=== PATIENT | female | born 1995 | race Caucasian/White ===

== ENCOUNTER 2024-02-26 16:07 | Day surgery (SDC) | payer BC ==
[2024-02-26 16:33] VITALS: BMI 33.4
[2024-02-26 17:32] LABS: Bilirubin Neg (Negative); Blood, Urine Negative (Negative); Clarity Clear (Clear); Glucose, Urine (Dipstick) Normal (Negative); Ketone, Urine Negative (Negative); Leukocyte 25 (Negative); Nitrite Negative (Negative); Protein, Urine (Dipstick) Negative (Neg-Trace); Urobilinogen Normal mg/dL (Less than 2)
[2024-02-26 17:39] LABS: Bacteria/HPF Rare-Few HPF (None Seen); CAUTI Indications for Culture Dysuria,urgency,freq; RBC/HPF 0-3 HPF (0-3); Squamous Epithelial 0-3 HPF (0-3); WBC/HPF 0-3 HPF (0-3)
[2024-02-26 17:41] LABS: Urine Culture Reflex No No
== END 2024-02-26 17:50 | disposition home or self-care (01) ==
LOC: CSHLD/OP 16:07
PROVIDERS: ATTEND Obstetrics & Gynecology
DX: O99.891 Other specified diseases and conditions complicating pregnancy (principal); M54.9 Dorsalgia, unspecified; R10.2 Pelvic and perineal pain; Z79.899 Other long term (current) drug therapy; Z3A.21 21 weeks gestation of pregnancy
CPT/HCPCS: 81001; 99282

== ENCOUNTER 2024-04-05 15:06 | Day surgery (SDC) | payer BC ==
[2024-04-05 15:40] VITALS: BMI 34.2
[2024-04-05] MEDS ORDERED: hydrALAZINE 20 MG/ML VIAL SLOW IVP PRN (15:59)
[2024-04-05 16:31] LABS: #Basophils 0.03 10x3/uL (0.0-0.2); #Eosinophils 0.17 10x3/uL (0.0-0.5); #Monocytes 1.04 10x3/uL (0.0-1.1); #Neutrophils 9.09 10x3/uL (1.5-8.4); %Basophils 0.2 % (0.0-2.0); %Eosinophils 1.4 % (0.0-6.0); %Lymphocytes 13.4 % (18.0-47.0); %Monocytes 8.6 % (0.0-10.0); %Neutrophils 75.5 % (40.0-75.0); Hematocrit 33.4 % (34.9-44.5); Hemoglobin 11.1 g/dL (12.0-15.5); Mean Corpuscular HGB CONC 33.2 g/dL (32.0-36.0); Mean Corpuscular Hemoglobin 30.3 pg (27.0-33.0); Mean Corpuscular Volume 91.3 fL (81.6-98.3); Mean Platelet Volume 9.4 fL (7.4-10.4); Platelet Count 373 10x3/uL (150-450); RBC Distribution Width 12.8 % (11.5-14.5); Red Blood Cell (RBC) Count 3.66 10x6/uL (3.90-5.03); White Blood Cell (WBC) Count 12.1 10x3/uL (3.5-10.5)
[2024-04-05 16:48] LABS: ALT (SGPT) 16 U/L (8-55); AST (SGOT) 15 U/L (5-34); Albumin 2.6 g/dL (3.5-5.0); Alkaline Phosphatase 61 U/L (40-110); Anion Gap 13 mmol/L (10-20); BUN (Urea Nitrogen) 10 mg/dL (7.0-18.7); Bilirubin, Total 0.2 mg/dL (0.2-1.2); Calc. Creatinine Clearance 158 mL/min (70-130); Carbon Dioxide 22 mmol/L (22-29); Chloride 108 mmol/L (98-107); Estimated GFR 123; Globulin 4.1 g/dL (2.4-3.5); Glucose 91 mg/dL (70-105); Potassium 3.8 mmol/L (3.5-5.1); Protein, Total 6.7 g/dL (6.0-8.3); Sodium 139 mmol/L (136-145)
[2024-04-05 16:51] LABS: Creatinine, Urine 27.99 mg/dL (47-110); Protein, Urine Random Quant Less than 10 mg/dL (1-14)
== END 2024-04-05 17:05 | disposition home or self-care (01) ==
LOC: CSHLD/OP 15:06
PROVIDERS: ATTEND Obstetrics & Gynecology
DX: O99.891 Other specified diseases and conditions complicating pregnancy (principal); R42 Dizziness and giddiness; R03.0 Elevated blood-pressure reading, without diagnosis of hypertension; Z79.899 Other long term (current) drug therapy; Z90.89 Acquired absence of other organs; Z3A.26 26 weeks gestation of pregnancy
CPT/HCPCS: 36415; 80053; 82570; 84156; 85025; 99284

== ENCOUNTER 2024-05-13 19:59 | Day surgery (SDC) | payer BC ==
[2024-05-13 20:22] VITALS: BMI 37.5
== END 2024-05-13 22:00 | disposition home or self-care (01) ==
LOC: CSHLD/OP 19:59
PROVIDERS: ATTEND Obstetrics & Gynecology
DX: O36.8130 Decreased fetal movements, third trimester, not applicable or unspecified (principal); Z79.899 Other long term (current) drug therapy; Z3A.32 32 weeks gestation of pregnancy

== ENCOUNTER 2024-06-07 13:19 | Day surgery (SDC) | payer BC ==
[2024-06-07 13:37] VITALS: BMI 38.7
[2024-06-07] MEDS ORDERED: hydrALAZINE 20 MG/ML VIAL SLOW IVP PRN (14:02)
[2024-06-07 14:35] LABS: #Basophils 0.03 10x3/uL (0.0-0.2); #Eosinophils 0.17 10x3/uL (0.0-0.5); #Monocytes 1.09 10x3/uL (0.0-1.1); #Neutrophils 7.67 10x3/uL (1.5-8.4); %Basophils 0.3 % (0.0-2.0); %Eosinophils 1.6 % (0.0-6.0); %Lymphocytes 13.4 % (18.0-47.0); %Monocytes 10.5 % (0.0-10.0); %Neutrophils 73.8 % (40.0-75.0); Hemoglobin 10.9 g/dL (12.0-15.5); Mean Corpuscular HGB CONC 32.1 g/dL (32.0-36.0); Mean Corpuscular Volume 84.4 fL (81.6-98.3); Mean Platelet Volume 10.3 fL (7.4-10.4); Platelet Count 331 10x3/uL (150-450); RBC Distribution Width 13.7 % (11.5-14.5); Red Blood Cell (RBC) Count 4.03 10x6/uL (3.90-5.03); White Blood Cell (WBC) Count 10.39 10x3/uL (3.5-10.5)
[2024-06-07 14:37] LABS: Bilirubin Neg (Negative); Blood, Urine Negative (Negative); Clarity Clear (Clear); Glucose, Urine (Dipstick) Normal (Negative); Ketone, Urine Negative (Negative); Leukocyte 100 (Negative); Nitrite Negative (Negative); Protein, Urine (Dipstick) Negative (Neg-Trace); Urobilinogen Normal mg/dL (Less than 2); pH, Urine 6.5 (5.0-9.0)
[2024-06-07 14:54] LABS: ALT (SGPT) 18 U/L (Less than 34); AST (SGOT) 27 U/L (11-34); Albumin 2.5 g/dL (3.1-4.5); Alkaline Phosphatase 105 U/L (40-110); Anion Gap 12 mmol/L (10-20); BUN (Urea Nitrogen) 10 mg/dL (7.0-18.7); Bilirubin, Total 0.3 mg/dL (0.3-1.2); Calc. Creatinine Clearance 207 mL/min (70-130); Calcium 9.4 mg/dL (7.8-10.44); Carbon Dioxide 19 mmol/L (22-29); Chloride 110 mmol/L (98-107); Estimated GFR 127; Glucose 66 mg/dL (70-105); Potassium 4.1 mmol/L (3.5-5.1); Protein, Total 6.5 g/dL (6.0-8.3); Sodium 137 mmol/L (136-145)
[2024-06-07 15:04] LABS: Creatinine, Urine 11.53 mg/dL (16.00-327.00); Protein, Urine Random Quant Less than 10 mg/dL (1-14)
[2024-06-07 15:51] LABS: RBC/HPF None Seen HPF (0-3)
[2024-06-07 15:52] LABS: Bacteria/HPF 1+ HPF (None Seen); CAUTI Indications for Culture Pregnancy; Squamous Epithelial 0-3 HPF (0-3)
[2024-06-07 15:54] LABS: Urine Culture Reflex Yes Yes
[2024-06-09 12:41] LABS: Group B Streptococcus by PCR Not Detected (NotDetected)
== END 2024-06-07 18:15 | disposition home or self-care (01) ==
LOC: CSHLD/OP 13:19
PROVIDERS: ATTEND Obstetrics & Gynecology
DX: O13.3 Gestational [pregnancy-induced] hypertension without significant proteinuria, third trimester (principal); O47.03 False labor before 37 completed weeks of gestation, third trimester; Z3A.35 35 weeks gestation of pregnancy; Z98.890 Other specified postprocedural states; Z79.899 Other long term (current) drug therapy
CPT/HCPCS: 36415; 80053; 81001; 82570; 84156; 85025; 87086; 87653; 99285

== ENCOUNTER 2024-06-22 07:02 | Inpatient (IN) | payer BC ==
[2024-06-22 07:53] VITALS: BMI 40.6
[2024-06-22] MEDS ORDERED: hydrALAZINE 20 MG/ML VIAL SLOW IVP PRN ×2 (08:14→08:45)
[2024-06-22 08:22] LABS: Fetal Membranes Rupture RUPTURE DETECTED (No Rupture)
[2024-06-22] MEDS ORDERED: fentaNYL 50 mcg/mL 1 mL Vial SLOW IVP PRN (08:45)
[2024-06-22] MEDS ORDERED: Misoprostol 100 MCG TAB VAG SCH (08:45)
[2024-06-22] MEDS ORDERED: Acetaminophen 500 MG TAB PO PRN (08:45)
[2024-06-22] MEDS ORDERED: Tranexamic Acid 1,000 MG/10 ML VIAL IVP PRN (08:45)
[2024-06-22] MEDS ORDERED: Misoprostol 200 MCG TAB PR PRN (08:45)
[2024-06-22] MEDS ORDERED: Oxytocin 30 units/NS 500 ML 500 ML IV SCH ×2 (08:45)
[2024-06-22] MEDS ORDERED: Promethazine HCl 25 MG/ML VIAL IM PRN ×2 (08:45→16:34)
[2024-06-22] MEDS ORDERED: Ondansetron PF 4 MG/2 ML Vial IVP PRN (08:45)
[2024-06-22] MEDS ORDERED: Ibuprofen 800 MG TAB PO PRN (08:45)
[2024-06-22] MEDS ORDERED: Carboprost 250 MCG/ML AMP IM PRN (08:45)
[2024-06-22] MEDS ORDERED: Methylergonovine 0.2 MG/ML VIAL IM PRN (08:45)
[2024-06-22] MEDS ORDERED: Diphenoxylate HCl/Atropine Tablet PO PRN ×2 (08:45)
[2024-06-22] MEDS ORDERED: Lidocaine 1% (PF) 30 ML VIAL SC PRN (08:45)
[2024-06-22] MEDS: Oxytocin 30 units/NS 500 ML 500 ML IV SCH (09:22)
[2024-06-22] MEDS: Lactated Ringer's 1,000 ML IV SCH (09:28)
[2024-06-22 10:16] LABS: Hematocrit 35.3 % (34.9-44.5); Hemoglobin 11.4 g/dL (12.0-15.5); Mean Corpuscular HGB CONC 32.3 g/dL (32.0-36.0); Mean Corpuscular Hemoglobin 27.2 pg (27.0-33.0); Mean Corpuscular Volume 84.2 fL (81.6-98.3); Mean Platelet Volume 11.3 fL (7.4-10.4); Platelet Count 310 10x3/uL (150-450); RBC Distribution Width 14.6 % (11.5-14.5); Red Blood Cell (RBC) Count 4.19 10x6/uL (3.90-5.03); White Blood Cell (WBC) Count 9.51 10x3/uL (3.5-10.5)
[2024-06-22 10:49] LABS: Syphilis Antibody Nonreactive (Nonreactive); Syphilis Antibody Index 0.13 S/CO (<1.00 Non-Reactive)
[2024-06-22 10:50] LABS: HBsAg Index 0.21 S/CO (0-0.99); Hep B Surf Ag - L&D Non-Reactive S/CO (NonReactive)
[2024-06-22] MEDS ORDERED: Bupivacaine 0.25% HCL 30 ML VIAL ONE (13:00)
[2024-06-22] MEDS ORDERED: Bupivacaine HCl 0.5%/Epinephrine 1:200,000/PF 30 ml Vial ONE (13:00)
[2024-06-22] MEDS ORDERED: Terbutaline Sulfate 1 MG/ML VIAL ONE (13:00)
[2024-06-22] MEDS: fentaNYL/Ropivacaine Epidural 100 ML ONE (16:15)
[2024-06-22] MEDS ORDERED: Moisturizing Cream (Eucerin) 113 GM JAR TOP PRN (16:34)
[2024-06-22] MEDS ORDERED: diphenhydrAMINE 50 MG/ML VIAL IVP PRN (16:34)
[2024-06-22] MEDS ORDERED: Acetaminophen 325 MG TAB PO PRN (16:34)
[2024-06-22] MEDS ORDERED: ePHEDrine Sulfate 50 MG/10 ML VIAL SLOW IVP PRN (16:34)
[2024-06-22] MEDS ORDERED: Naloxone HCl 0.4 mg/ml Vial IVP PRN ×2 (16:34)
[2024-06-22] MEDS ORDERED: Lactated Ringer's 500 ML IV PRN (16:34)
[2024-06-22] MEDS ORDERED: Communication Order-Pharmacy FS SCH (16:45)
[2024-06-22 18:48] LABS: ALT (SGPT) 16 U/L (Less than 34); AST (SGOT) 23 U/L (11-34); Albumin 2.7 g/dL (3.1-4.5); Alkaline Phosphatase 113 U/L (40-110); Anion Gap 14 mmol/L (10-20); BUN (Urea Nitrogen) 11 mg/dL (7.0-18.7); Bilirubin, Total 0.2 mg/dL (0.3-1.2); Calc. Creatinine Clearance 188 mL/min (70-130); Calcium 8.9 mg/dL (7.8-10.44); Carbon Dioxide 17 mmol/L (22-29); Chloride 110 mmol/L (98-107); Estimated GFR 123; Globulin 3.7 g/dL (2.4-3.5); Glucose 75 mg/dL (70-105); Potassium 4.5 mmol/L (3.5-5.1); Protein, Total 6.4 g/dL (6.0-8.3); Sodium 136 mmol/L (136-145)
[2024-06-22] MEDS: Calcium Carbonate 500 MG ChewTAB PO PRN (19:30)
[2024-06-22 19:53] LABS: Creatinine, Urine 33.51 mg/dL (16.00-327.00); Protein, Urine Random Quant Less than 10 mg/dL (1-14)
[2024-06-23] MEDS: fentaNYL 2 mcg/Ropivacaine 0.2% Epidural 100 ML CADD EPIDURAL SCH (02:03)
[2024-06-23] MEDS: Ondansetron PF 4 MG/2 ML Vial IVP PRN ×2 (04:20→07:37)
[2024-06-23] MEDS ORDERED: Famotidine/PF 20 mg/2ml Vial SLOW IVP PRN (04:54)
[2024-06-23] MEDS ORDERED: Bicitra 30 ML UDCUP PO PRN (04:54)
[2024-06-23] MEDS ORDERED: CEFAZOLIN 2 GM in Sodium Chloride 0.9% 100 ML IVPB SCH (05:00)
[2024-06-23 05:49] LABS: Analyzer IN Cardio CS NICU; RapidComm Collect By RN
[2024-06-23] MEDS ORDERED: Moisturizing Cream (Eucerin) 113 GM JAR TOP PRN (05:50)
[2024-06-23] MEDS ORDERED: diphenhydrAMINE 50 MG/ML VIAL IVP PRN (05:50)
[2024-06-23] MEDS ORDERED: Ketorolac Tromethamine 30 MG (1 mL) VIAL IVP PRN (05:50)
[2024-06-23] MEDS ORDERED: Promethazine HCl 25 MG/ML VIAL IM PRN (05:50)
[2024-06-23] MEDS ORDERED: Meperidine HCl/PF 25 MG (1 mL) VIAL SLOW IVP PRN (05:50)
[2024-06-23] MEDS ORDERED: Naloxone HCl 0.4 mg/ml Vial IVP PRN ×2 (05:50)
[2024-06-23] MEDS ORDERED: Ondansetron PF 4 MG/2 ML Vial IVP PRN ×2 (05:50→06:32)
[2024-06-23] MEDS ORDERED: Naloxone HCl 0.4 mg/ml Vial IV PRN (05:50)
[2024-06-23 05:51] LABS: Analyzer IN Cardio CS NICU; RapidComm Collect By RN; pH (Cord, venous) 7.287 (7.250-7.350)
[2024-06-23] MEDS ORDERED: Communication Order-Pharmacy FS SCH (06:00)
[2024-06-23] MEDS ORDERED: Ketorolac Tromethamine 30 MG (1 mL) VIAL IVP SCH (06:00)
[2024-06-23] MEDS ORDERED: hydrALAZINE 20 MG/ML VIAL SLOW IVP PRN (06:32)
[2024-06-23] MEDS ORDERED: diphenhydrAMINE 25 MG CAP PO PRN (06:32)
[2024-06-23] MEDS ORDERED: Misoprostol 200 MCG TAB PR PRN (06:32)
[2024-06-23] MEDS ORDERED: Oxytocin 30 units/NS 500 ML 500 ML IV SCH (06:45)
[2024-06-23 06:50] LABS: D-Dimer Test 5.04 mcg/mL (0.19-0.50); INR-International Normal Ratio 0.9; PTT 25.5 sec (22.0-33.0); Prothrombin Time 10.2 sec (9.5-12.1)
[2024-06-23] MEDS: fentaNYL 50 mcg/mL 1 mL Vial SLOW IVP PRN (06:56)
[2024-06-23 08:15] LABS: Hematocrit 25.7 % (34.9-44.5); Hemoglobin 8.3 g/dL (12.0-15.5)
[2024-06-23] MEDS ORDERED: Boostrix 0.5 ML (Tdap) VIAL (>/=7 yrs of age) IM ONE (09:00)
[2024-06-23] MEDS: Azithromycin 500 MG VIAL ONE (09:44)
[2024-06-23] MEDS: CEFAZOLIN 2 GM VIAL ONE (09:44)
[2024-06-23] MEDS: Morphine PF 10 MG/10 ML VIAL ONE (09:45)
[2024-06-23] MEDS: Famotidine/PF 20 mg/2ml Vial ONE (09:45)
[2024-06-23] MEDS: Ondansetron PF 4 MG/2 ML Vial ONE (09:45)
[2024-06-23] MEDS: Ketorolac Tromethamine 30 MG (1 mL) VIAL ONE (09:45)
[2024-06-23] MEDS: Dexamethasone 10 MG/ML VIAL ONE (09:45)
[2024-06-23] MEDS: Lidocaine 2% MPF 10 ML AMP (For Epidural Use) ONE ×2 (09:45)
[2024-06-23] MEDS: Dexmedetomidine 200 MCG/2 ML VIAL ONE (09:46)
[2024-06-23] MEDS: Tranexamic Acid 1,000 MG/10 ML VIAL ONE ×2 (09:46)
[2024-06-23] MEDS: Fentanyl 100 MCG/2 ML VIAL ONE ×2 (09:46)
[2024-06-23] MEDS: ePHEDrine Sulfate 50 MG/10 ML VIAL ONE (09:47)
[2024-06-23] MEDS: PHENYLEPHRINE-NS 100 MCG/ML 10 ML SYRINGE ONE (09:47)
[2024-06-23] MEDS: Acetaminophen 325 MG TAB PO PRN (11:41)
[2024-06-23] MEDS: Prenatal Vitamin 1 TAB PO SCH (14:48)
[2024-06-23 15:28] LABS: Hematocrit 28.4 % (34.9-44.5); Hemoglobin 9.6 g/dL (12.0-15.5); Mean Corpuscular HGB CONC 33.8 g/dL (32.0-36.0); Mean Corpuscular Hemoglobin 28.7 pg (27.0-33.0); Mean Platelet Volume 10.9 fL (7.4-10.4); Platelet Count 234 10x3/uL (150-450); RBC Distribution Width 14.7 % (11.5-14.5); Red Blood Cell (RBC) Count 3.34 10x6/uL (3.90-5.03); White Blood Cell (WBC) Count 22.67 10x3/uL (3.5-10.5)
[2024-06-23 16:17] LABS: ALT (SGPT) 14 U/L (Less than 34); AST (SGOT) 27 U/L (11-34); Albumin 2.1 g/dL (3.1-4.5); Alkaline Phosphatase 70 U/L (40-110); Anion Gap 13 mmol/L (10-20); BUN (Urea Nitrogen) 12 mg/dL (7.0-18.7); Bilirubin, Total 0.5 mg/dL (0.3-1.2); Calc. Creatinine Clearance 157 mL/min (70-130); Calcium 7.8 mg/dL (7.8-10.44); Carbon Dioxide 14 mmol/L (22-29); Chloride 112 mmol/L (98-107); Estimated GFR 104; Globulin 2.5 g/dL (2.4-3.5); Glucose 135 mg/dL (70-105); Potassium 4.7 mmol/L (3.5-5.1); Protein, Total 4.6 g/dL (6.0-8.3); Sodium 134 mmol/L (136-145)
[2024-06-23] MEDS ORDERED: Bisacodyl 10 MG SUPP PR PRN (16:43)
[2024-06-23] MEDS ORDERED: Lanolin Ointment 7 GM TUBE TOP PRN (16:43)
[2024-06-23] MEDS: HYDROcodone/Acetaminophen 5/325 mg Tablet PO PRN ×2 (17:03→23:12)
[2024-06-23] MEDS: Ferrous Sulfate 325 MG TAB PO SCH (20:38)
[2024-06-23] MEDS: Simethicone Chewable 80 MG TAB PO PRN (20:38)
[2024-06-23] MEDS: Ketorolac Tromethamine 30 MG (1 mL) VIAL IVP SCH (20:38)
[2024-06-23] MEDS: Docusate 100 MG CAP PO SCH (20:39)
[2024-06-23] MEDS: Lactated Ringer's 1,000 ML IV SCH (20:55)
[2024-06-23] MEDS: Lactated Ringer's 500 ML IV SCH ×2 (20:55→23:28)
[2024-06-23] MEDS: Oxytocin 30 units/NS 500 ML 500 ML ONE (23:27)
[2024-06-24] MEDS: Lactated Ringer's 500 ML IV SCH (04:06)
[2024-06-24 05:04] LABS: Hematocrit 20.7 % (34.9-44.5); Mean Corpuscular HGB CONC 33.8 g/dL (32.0-36.0); Mean Corpuscular Hemoglobin 28.9 pg (27.0-33.0); Mean Corpuscular Volume 85.5 fL (81.6-98.3); Mean Platelet Volume 11.3 fL (7.4-10.4); Platelet Count 177 10x3/uL (150-450); Red Blood Cell (RBC) Count 2.42 10x6/uL (3.90-5.03); White Blood Cell (WBC) Count 14.34 10x3/uL (3.5-10.5)
[2024-06-24 05:29] LABS: ALT (SGPT) 16 U/L (Less than 34); AST (SGOT) 45 U/L (11-34); Albumin 1.9 g/dL (3.1-4.5); Alkaline Phosphatase 69 U/L (40-110); Anion Gap 11 mmol/L (10-20); BUN (Urea Nitrogen) 11 mg/dL (7.0-18.7); Bilirubin, Total 0.2 mg/dL (0.3-1.2); Calc. Creatinine Clearance 194 mL/min (70-130); Calcium 8.1 mg/dL (7.8-10.44); Carbon Dioxide 17 mmol/L (22-29); Chloride 115 mmol/L (98-107); Estimated GFR 124; Globulin 2.6 g/dL (2.4-3.5); Glucose 84 mg/dL (70-105); Potassium 4.1 mmol/L (3.5-5.1); Protein, Total 4.5 g/dL (6.0-8.3); Sodium 139 mmol/L (136-145)
[2024-06-24] MEDS ORDERED: Ibuprofen 800 MG TAB PO PRN (06:00)
[2024-06-24] MEDS ORDERED: Lanolin Ointment 7 GM TUBE TOP PRN (06:32)
[2024-06-24] MEDS ORDERED: Promethazine HCl 25 MG/ML VIAL IM PRN (06:32)
[2024-06-24] MEDS ORDERED: Bisacodyl 10 MG SUPP PR PRN (06:32)
[2024-06-24] MEDS ORDERED: hydrALAZINE 20 MG/ML VIAL SLOW IVP PRN (06:32)
[2024-06-24] MEDS: Simethicone Chewable 80 MG TAB PO PRN (06:39)
[2024-06-24] MEDS: Boostrix 0.5 ML (Tdap) VIAL (>/=7 yrs of age) IM ONE (07:10)
[2024-06-24] MEDS: Ibuprofen 800 MG TAB PO SCH (08:32)
[2024-06-24] MEDS: Ketorolac Tromethamine 30 MG (1 mL) VIAL IVP PRN (08:39)
[2024-06-24] MEDS: Ferrous Sulfate 325 MG TAB PO SCH (08:40)
[2024-06-24] MEDS: Docusate 100 MG CAP PO SCH (08:40)
[2024-06-24] MEDS: Prenatal Vitamin 1 TAB PO SCH (08:40)
[2024-06-24] MEDS: HYDROcodone/Acetaminophen 5/325 mg Tablet PO PRN (08:40)
[2024-06-24] MEDS ORDERED: Ibuprofen 800 MG TAB PO SCH (11:00)
[2024-06-25] MEDS: HYDROcodone/Acetaminophen 5/325 mg Tablet PO PRN (01:21)
[2024-06-25 05:35] LABS: Hemoglobin 7.6 g/dL (12.0-15.5); Mean Corpuscular HGB CONC 34.5 g/dL (32.0-36.0); Mean Corpuscular Hemoglobin 29.3 pg (27.0-33.0); Mean Corpuscular Volume 84.9 fL (81.6-98.3); Mean Platelet Volume 10.6 fL (7.4-10.4); Platelet Count 192 10x3/uL (150-450); RBC Distribution Width 15.6 % (11.5-14.5); Red Blood Cell (RBC) Count 2.59 10x6/uL (3.90-5.03); White Blood Cell (WBC) Count 12.04 10x3/uL (3.5-10.5)
[2024-06-25] MEDS: Acetaminophen 325 MG TAB PO PRN (08:32)
[2024-06-25] MEDS: Ibuprofen 800 MG TAB PO SCH (10:21)
[2024-06-25 13:37] VITALS: BP 131/76; TEMP 98.9
== END 2024-06-25 14:24 | disposition home or self-care (01) | DRG 787 ==
LOC: CSHLD/OP 07:02 → CSHLD 12:32 → CSHPP 06-24 06:15
PROVIDERS: ADMIT Obstetrics & Gynecology; ATTEND Obstetrics & Gynecology
PROC: 10D00Z1 Extraction of Products of Conception, Low, Open Approach (ICD-10-PCS; principal; 2024-06-23)
PROC: 30233L1 Transfusion of Nonautologous Fresh Plasma into Peripheral Vein, Percutaneous Approach (ICD-10-PCS; 2024-06-23)
PROC: 30233N1 Transfusion of Nonautologous Red Blood Cells into Peripheral Vein, Percutaneous Approach (ICD-10-PCS; 2024-06-23)
DX: O13.4 Gestational [pregnancy-induced] hypertension without significant proteinuria, complicating childbirth (principal); D62 Acute posthemorrhagic anemia; O98.32 Other infections with a predominantly sexual mode of transmission complicating childbirth; O99.43 Diseases of the circulatory system complicating the puerperium; A60.00 Herpesviral infection of urogenital system, unspecified; O76 Abnormality in fetal heart rate and rhythm complicating labor and delivery; O72.1 Other immediate postpartum hemorrhage; I95.9 Hypotension, unspecified; O90.49 Other postpartum acute kidney failure; O62.1 Secondary uterine inertia; Z3A.37 37 weeks gestation of pregnancy; Z37.0 Single live birth
CPT/HCPCS: 36415; 36430; 51702; 80053; 82570; 82805; 84112; 84156; 85014; 85018; 85027; 85049; 85300; 85362; 85384; 85610; 85730; 86780; 86850; 86900; 86901; 87340; 99285; J0665; J1100; J1885; J2274; J2405; J2590; J3010; J3105; J3490; J7120; P9016; P9048

== ENCOUNTER 2024-12-25 09:04 | Outpatient (CLI) | payer BC ==
[2024-12-25 09:50] LABS: BHCG - Serum Negative (NEGATIVE); Pregs Control Background? CLEAR/WHITE (CLR/WHITE); Pregs Control Bar Appear? YES (CONTROL BAR)
== END 2024-12-25 09:05 | disposition home or self-care (01) ==
LOC: CSHLAB 09:04
PROVIDERS: ATTEND Surgery
DX: Z01.812 Encounter for preprocedural laboratory examination (principal); K43.2 Incisional hernia without obstruction or gangrene
CPT/HCPCS: 84703

== ENCOUNTER 2024-12-31 11:29 | Day surgery (SDC) | payer BC ==
[2024-12-25 09:19] VITALS: BMI 37.5
[2024-12-31] MEDS ORDERED: Lidocaine 1% PF 5 ML VIAL ONE (11:42)
[2024-12-31] MEDS ORDERED: Rocuronium Bromide 10 MG/ML (10ML VIAL) ONE (11:42)
[2024-12-31] MEDS ORDERED: PROPOFOL 20 ML ONE (11:42)
[2024-12-31] MEDS ORDERED: Bupivacaine/Epinephrine 0.25% 30 ML VIAL ONE ×2 (12:15→13:34)
[2024-12-31] MEDS ORDERED: CEFAZOLIN 2 GM VIAL ONE (13:04)
[2024-12-31] MEDS ORDERED: Ondansetron PF 4 MG/2 ML Vial ONE ×2 (13:28→15:06)
[2024-12-31] MEDS ORDERED: Ketorolac Tromethamine 30 MG (1 mL) VIAL ONE (14:42)
[2024-12-31] MEDS ORDERED: SUGAMMADEX SODIUM 200 MG/2 ML VIAL ONE (14:54)
[2024-12-31] MEDS ORDERED: HYDROcodone/Acetaminophen 5/325 mg Tablet ONE (16:03)
== END 2024-12-31 16:50 | disposition home or self-care (01) ==
LOC: CSHSDC 11:29
PROVIDERS: ATTEND Surgery
PROC: 0WUF4JZ Supplement Abdominal Wall with Synthetic Substitute, Percutaneous Endoscopic Approach (ICD-10-PCS; principal; 2024-12-31)
DX: K43.2 Incisional hernia without obstruction or gangrene (principal); Z87.59 Personal history of other complications of pregnancy, childbirth and the puerperium; Z91.048 Other nonmedicinal substance allergy status
CPT/HCPCS: C1781; J1100; J1885; J2405; J2704; J3010; S2900